=== PATIENT | female | born 1970 | race African-American/Black ===

== ENCOUNTER 2017-12-04 18:18 | Emergency (ER) | END 2017-12-04 19:46 | disposition home or self-care (01) ==

== ENCOUNTER 2017-12-06 13:21 | Emergency (ER) | END 2017-12-06 16:11 | disposition home or self-care (01) ==

== ENCOUNTER 2017-12-14 12:34 | Emergency (ER) | END 2017-12-14 17:30 | disposition left against medical advice (07) ==